=== PATIENT | female | born 1935 | race Caucasian/White ===

== ENCOUNTER 2017-08-06 18:06 | Inpatient (IN) | payer OTHER, BC ==
--- NOTE | 2017-08-06 18:41 | EDPHY ---
H & P Stated Complaint: PT WITH INTERMITTENT "LITTLE BUZZ "L BREAST/CHEST Time Seen by Provider: 08/06/17 18:28 HPI/ROS: CHIEF COMPLAINT: Left-sided chest tremor HISTORY OF PRESENT ILLNESS: The patient is an 82 y/o female with history of hypertension complaining of a "tremor" in the left side of her chest since 14:00, 5 hours ago. The tremor in her chest began while watching TV today, which caused her to be stressed. She noticed that her blood pressure was increasing. She continued to feel a margarito , tremor, and irregular heartbeat. She denies any chest discomfort or shortness of breath. Denies history of PVC, arrhythmias, CAD, diabetes, hypo/ hyperkalemia. Denies recent travel, personal or familial history of DVT's or PE' s. No fever, chills, chest pain, shortness of breath, vomiting, diarrhea, urinary complaints, headache, lightheadedness, extremity swelling. REVIEW OF SYSTEMS: Aside from elements discussed in the HPI, a comprehensive 10-point review of systems was reviewed and is negative. 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 Monitor reveals ventricular bigeminy, frequent PVCs, interspersed with periods of sinus rhythm. GENERAL: Well-developed, well-nourished, resting comfortably in no respiratory distress. HEENT: Atraumatic. Eyes: No icterus, no injection. Mouth: moist mucous membranes. No erythema or lesions. Neck: supple with no adenopathy. LUNGS: Clear to auscultation bilaterally, no wheezes, rhonchi or rales. CARDIAC: Tachycardic with irregular rhythm, no rubs or murmurs. ABDOMEN: Soft, nontender, nondistended, bowel sounds normal. BACK: No CVA tenderness. EXTREMITIES: No trauma. No edema. Range of motion is normal throughout. NEURO: Alert and oriented, grossly nonfocal. SKIN: Warm and dry, no rash. PSYCHIATRIC: Normal mentation, no agitation. Portions of this note were transcribed by a biomedical equipment specialist. I personally performed a history, physical exam, medical decision making, and confirmed accuracy of information the transcribed note. - Personal History Current Tetanus/Diphtheria Vaccine: Unsure - Medical/Surgical History Hx Asthma: No Hx Chronic Respiratory Disease: No Hx Diabetes: No Hx Cardiac Disease: No Hx Renal Disease: No Hx Cirrhosis: No Hx Alcoholism: No Hx HIV/AIDS: No Other PMH: OA, HTN, high cholesterol - Social History Smoking Status: Never smoked Constitutional: Initial Vital Signs Temperature (C) 36.8 C 08/06/17 18:12 Heart Rate 91 08/06/17 18:12 Respiratory Rate 18 08/06/17 18:12 Blood Pressure 198/103 H 08/06/17 18:12 O2 Sat (%) 95 08/06/17 18:12 O2 Delivery Mode Nasal Cannula O2 (L/minute) 2 Allergies/Adverse Reactions: lisinopril Allergy (Unknown, Verified 08/06/17 18:11) amlodipine Allergy (Verified 08/06/17 18:11) triamterene Allergy (Verified 08/06/17 18:11) Home Medications: Medication Instructions Recorded Aspirin [Aspirin 325 mg (*)] 325 mg PO DAILY PRN 12/01/12 Simvastatin [Zocor 40 mg] 40 mg PO DAILY 12/01/12 Escitalopram Oxalate [Lexapro 10 10 mg PO DAILY 11/14/14 MG] Losartan Potassium [Cozaar 50 mg 50 mg PO 2000 11/14/14 (*)] Medical Decision Making - Diagnostics EKG Interpretation: 12-LEAD EKG: Please see the full report in [facility]. My interpretation: Sinus tachycardia with paired PVC's ED Course/Re-evaluation: The patient is an 82 y/o female presenting with an irregular tachycardic heart rate and high blood pressure. EKG ordered and interpreted. 82-year-old female with history of hypertension presenting with ventricular bigeminy, frequent PVCs, interspersed with periods of sinus rhythm. Patient has no known cardiac disease. Laboratory evaluation is largely unremarkable, troponin is 0.027. 1944: Reassessed patient and discussed imaging findings. Recommend admission to the hospital for further evaluation of her arrhythmia. Patient is comfortable with plan for admission. 2037: Consulted with Dr. Meza, hospitalist, she accepts admission of this patient. Differential Diagnosis: Differential diagnoses for the patient's presenting complaint was considered including but not limited to sinus tachycardia, PACs, PVCs, SVT, atrial fibrillation, atrial flutter, anxiety, panic attack, coronary artery disease, conduction abnormality, electrolyte abnormality. Consult/Admit Bed Type: Dr Meza, [facility] - Data Points Laboratory Results: Laboratory Results 08/06/17 18:45 08/06/17 18:45 08/06/17 08/06/17 08/06/17 18:46 18:45 18:45 WBC 8.60 10^3/uL 10^3/uL (3.80-9.50) RBC 4.73 10^6/uL 10^6/uL (4.18-5.33) Hgb 14.0 g/dL g/dL (12.6-16.3) Hct 42.2 % % (38.0-47.0) MCV 89.2 fL fL (81.5-99.8) MCH 29.6 pg pg (27.9-34.1) MCHC 33.2 g/dL g/dL (32.4-36.7) RDW 13.2 % % (11.5-15.2) Plt Count 145 10^3/uL L 10^3/uL (150-400) MPV 11.1 fL fL (8.7-11.7) Neut % (Auto) 62.1 % % (39.3-74.2) Lymph % (Auto) 27.7 % % (15.0-45.0) Sequoyah % (Auto) 7.0 % % (4.5-13.0) Eos % (Auto) 2.4 % % (0.6-7.6) Baso % (Auto) 0.6 % % (0.3-1.7) Nucleat RBC Rel Count 0.0 % % (0.0-0.2) Absolute Neuts (auto) 5.34 10^3/uL 10^3/uL (1.70-6.50) Absolute Lymphs (auto) 2.38 10^3/uL 10^3/uL (1.00-3.00) Absolute Monos (auto) 0.60 10^3/uL 10^3/uL (0.30-0.80) Absolute Eos (auto) 0.21 10^3/uL 10^3/uL (0.03-0.40) Absolute Basos (auto) 0.05 10^3/uL 10^3/uL (0.02-0.10) Absolute Nucleated RBC 0.00 10^3/uL 10^3/uL (0-0.01) Immature Gran % 0.2 % % (0.0-1.1) Immature Gran # 0.02 10^3/uL 10^3/uL (0.00-0.10) D-Dimer 0.48 ug/mLFEU ug/mLFEU (0.00-0.50) Sodium 138 mEq/L mEq/L (134-144) Potassium 4.0 mEq/L mEq/L (3.5-5.2) Chloride 103 mEq/L mEq/L (97-110) Carbon Dioxide 21 mEq/l L mEq/l (22-31) Anion Gap 14 mEq/L mEq/L (8-16) BUN 23 mg/dL mg/dL (7-23) Creatinine 1.0 mg/dL mg/dL (0.6-1.0) Estimated GFR 53 Glucose 103 mg/dL H mg/dL (70-100) Calcium 9.0 mg/dL mg/dL (8.5-10.4) Troponin I 0.028 ng/mL ng/mL (0.000-0.034) Medications Given: Discontinued Medications Losartan Potassium (Cozaar) 50 mg PO EDNOW ONE Stop: 08/06/17 19:16 Last Admin: 08/06/17 19:28 Dose: 50 mg Departure - Departure Disposition: [facility] Inpatient Acute Clinical Impression: PVC (premature ventricular contraction) Condition: Fair Report Scribed for: Iraida Cortés Report Scribed by: Cristela Garcia Date of Report: 08/06/17 Time of Report: 18:41
--- NOTE | 2017-08-06 18:42 | CPEKG ---
Heart Rate: 103 RR Interval: 583 P-R Interval: 176 QRSD Interval: 100 QT Interval: 384 QTC Interval: 503 P Theresa: 55 QRS Theresa: -36 T Wave Theresa: 109 EKG Severity - ABNORMAL ECG - EKG Impression: SINUS TACHYCARDIA EKG Impression: PAIRED VENTRICULAR PREMATURE COMPLEXES EKG Impression: PROBABLE LEFT ATRIAL ABNORMALITY EKG Impression: LEFT AXIS DEVIATION EKG Impression: LVH WITH SECONDARY REPOLARIZATION ABNORMALITY Electronically Signed By: Iraida Cortés 06-Aug-2017 21:48:17
[2017-08-06 19:12] LABS: PLATELET COUNT 145 10^3/uL (150-400)
[2017-08-06] MEDS ORDERED: LOSARTAN POTASSIUM 50 MG TAB PO ONE (19:15)
[2017-08-06] MEDS ORDERED: ONDANSETRON 4 MG/2 ML VIAL IVP PRN (22:23)
[2017-08-06] MEDS ORDERED: ACETAMINOPHEN 325 MG TAB PO PRN (22:23)
[2017-08-06] MEDS ORDERED: ONDANSETRON DISINTEGRATING 4 MG TAB PO PRN (22:23)
[2017-08-06] MEDS ORDERED: ASPIRIN 325 MG TAB PO PRN (22:31)
--- NOTE | 2017-08-06 23:53 | GHP ---
[f rep st] HISTORY AND PHYSICAL DATE OF ADMISSION: 08/06/2017 CHIEF COMPLAINT: Palpitations and chest discomfort. HISTORY OF PRESENT ILLNESS: This is an 82-year-old female with a history of hypertension and hyperli pidemia, as well as anxiety, who presents after developing an unusual sensation she describes as a fl uttering over her left chest, which she described as bothersome and slightly uncomfortable. Patient reports having a stressful evening, feeling worried about her 4 children when she turned on the news and saw news of a traumatic event. She became very nervous and then became aware of this sensation a cross the left side of her chest. Patient reports that it intermittently came and went, was associat ed with some shortness of breath and an uncomfortable sensation across the left side of her chest. Pieter mott decided to present to the emergency department [place]. In the emergency department, she is continuing to have that unusual sensation acros s her chest with some associated shortness of breath. She denied any nausea or vomiting associated w ith it. 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 Denies any abdominal discomfort, any changes in her bowel habits, any diarrhea or constipation. Denies dysuria, hematuria, or lower extremity edema . Denies any headache, any vision changes, any dysphagia, subjective fevers, or chills. PAST MEDICAL HISTORY: 1. Anxiety. 2. Hypertension. 3. Hyperlipidemia. SOCIAL HISTORY: Negative for tobacco, alcohol, or illicit drugs. FAMILY HISTORY: Negative for anxiety. Patient believes she has a sister who had heart disease. REVIEW OF SYSTEMS: A 10-point review of systems is negative with the exception of that reported in t he HPI. PHYSICAL EXAMINATION: VITAL SIGNS: Blood pressure 174/92, heart rate 106, respiratory rate 16, 90% on room air, 36.4. GENERAL: This is a pleasant elderly female lying flat in bed. HEENT: Notable f or dry mucous membranes. Eye exam is negative for any icterus. CARDIAC: Patient is tachycardic and irregular. Quiet systolic murmur is appreciated at the left upper sternal border. PULMONARY: Has good respiratory effort, is clear to auscultation bilaterally. GASTROINTESTINAL: Positive bowel raffi nds. The abdomen soft and nontender in all 4 quadrants. MUSCULOSKELETAL: Negative for any lower ex tremity edema. SKIN: Negative for any rashes. NEUROLOGIC: Patient is alert and oriented x3. PSYC HIATRIC: She is anxious but cooperative on interview and examination. DATA: White count 8.6, hematocrit 42.2, platelets of 145. Creatinine 1.0, potassium 4.0. Calcium 9 .0. Troponin 0.028. EKG, which I personally reviewed and interpreted, shows sinus rhythm with bigem iny. ASSESSMENT AND PLAN: This is an 82-year-old female with hypertension and hyperlipidemia presenting w ith palpitations and chest discomfort. 1. Chest discomfort. Suspect a sensation she is describing, which is uncomfortable, is related to t he dysrhythmia we are seeing on telemetry. She is certainly at risk for ischemic cardiac disease wit h her hypertension and hyperlipidemia comorbidities. Will cycle the patient's troponins. If she rul es out, will order Lexiscan in the morning. Cardiology has been consulted and will see the patient f or her electrical abnormalities. 2. Bigeminy. Patient has consistently been popping in and out of bigeminy, certainly concerning for possible conduction abnormality secondary to ischemia. Again, will perform Lexiscan in the morning if the patient rules out, and Cardiology will be consulting. Will not initiate any new medications. Continue her home medications. As intermittently, her heart rates are appropriately controlled, I d o not want to induce bradycardia. We should get an estimate of the patient's ejection fraction with a Lexiscan. Will hold on additional echocardiography until Cardiology sees her in the morning. 3. Prophylaxis with Lovenox. DIET: Cardiac. DISPOSITION: I expect in less than 2 midnights if the patient rules out and mortgage loan funder feel she is appropriate for outpatient cardiac followup. I have discussed the case with the emergency room phys lissa. Patient will be triaged to the PCU for cardiac monitoring and care. /[id number]/MODL
[2017-08-07] MEDS: ATORVASTATIN CALCIUM 20 MG TAB PO SCH ×3 (08:41→21:00)
[2017-08-07] MEDS: ESCITALOPRAM OXALATE 10 MG TAB PO SCH (08:41)
[2017-08-07] MEDS ORDERED: ENOXAPARIN 40 MG/0.4 ML SYR SC SCH (09:00)
[2017-08-07] MEDS ORDERED: REGADENOSON 0.4 MG/5 ML SYR IVP ONE (10:05)
--- NOTE | 2017-08-07 11:14 | CPR ---
[f rep st] NONINVASIVE CARDIAC PROCEDURE REPORT DATE OF PROCEDURE: 08/07/2017 ORDERING PHYSICIAN: Tyesha Meza MD. REASON FOR TEST: Chest pain. Resting EKG shows a sinus rhythm with PVCs, rate 93. At baseline, she is asymptomatic. STRESS PORTION: Lexiscan was injected rapidly followed by saline flush. Cardiolite was then injecte d followed by saline flush per protocol. Peak blood pressure 150/80, peak heart rate 118, oxygen sat uration 97%. She continued to have PVCs at times bigeminy, PVCs and a rare couplet was noted. She d id flush, have shortness of breath and her legs felt tired. RECOVERY: She did spontaneously recover. Recovery blood pressure 140/88, heart rate 116, oxygen sat uration 94%. Her symptoms did subside with caffeine. She continues to have occasional PVCs in recov emily. At this time, she currently is stable for nuclear imaging. /[id number]/MODL
--- NOTE | 2017-08-07 11:34 | GCON ---
[f rep st] CONSULTATION CARDIOVASCULAR CONSULTATION REASON FOR CONSULTATION: This woman is admitted to the hospital with a little bit of chest discomfort. HISTORY OF PRESENT ILLNESS: She has a very interesting history where she was very worried up at home. She lives up in [facility] several miles up all by herself, and she does not like being alone and she felt stressed. She was worried about her daughters and she was worried about the news on television of bad things happening in the world. She then felt fluttering in her breast and came down to the hospital to be evaluated and was admitted to the hospital. She has no chest pain or chest tightness. She has no fever, chills, or cough. No syncope, near syncope. No hot, swollen joints. No major rashes. No photophobia, stiff neck, sore throat. No dysphagia or hoarseness. No trauma to the head, neck, or chest. She has been taking her medications and she has been doing quite well. She has hypertension, hyperlipidemia, and obesity. CARDIAC RISK FACTORS: Negative for family history of coronary disease, hyperuricemia, smoking history, known coronary artery disease, and for diabetes. FAMILY HISTORY: She has no family history of premature coronary disease. No history of unexplained sudden at a young age. SOCIAL HISTORY: She was born [place] country. She has been in [place] for 50 years and lives 3 miles up [facility] by herself. She does not like living alone and gets worried when she is up there. She has 4 children who are all healthy, and 1 daughter is here from [place], and it sounds like she is the one who is closest. The patient herself does not smoke. She does not drink significant amounts of alcohol, and she is quite active. She is very cooperative and benjie to talk to. MEDICATIONS: Listed in the record. REVIEW OF SYSTEMS: Positive for hyperlipidemia and hypertension. She is obese. ggggggggggggggggggggggggggggggggggggggA 12-point review of systems otherwise negative except for some minor arthritis and other complaints that are noted in the record. PHYSICAL EXAMINATION: VITAL SIGNS: Her blood pressure is 161/105; it had been 178/94. Her heart rate has been 95, 58, 84. Respiratory rate is 14 and irregular, and unlabored. Her oxygen saturation is in the 90s. HEENT: Pupils are equal and reactive. Mucous membranes and mouth moist. NECK: Supple. CARDIOVASCULAR: S1, S2. Systolic murmur left sternal border. No diastolic murmur. No S3, S4. No rubs. PULMONARY: Rhonchi bilaterally. No rales, wheezing, or dullness. ABDOMEN: Soft, nontender, without masses. She is obese. EXTREMITIES: No edema, inflammation, or ulceration. NEUROLOGIC: Cranial nerves 2-12 grossly normal. Motor and sensory intact. No focal neurologic deficits. SKIN: Age-related changes. PSYCHIATRIC: No anxiety or depression at this time. LABORATORY EVALUATION: White count 8.6, hematocrit 42, platelets 145. Sodium 140, potassium 4.0, chloride 106, CO2 24, BUN 18, creatinine 0.8. She came in with a troponin of 0.02 and went to 0.04. Glucose 103 and went to 85. She has nonspecific ST-T changes on her EKG. She has had some premature atrial contractions. Her EKG also shows left axis deviation, interventricular conduction delay, poor R-wave progression, sinus tachycardia. ASSESSMENT AND PLAN: 1. Anxiety. 2. Fluttering in the chest. 3. Hypertension. 4. Hyperlipidemia. 5. Obesity. The patient certainly could have some ischemia from the anxiety she was suffering yesterday. We will do a stress test at this point in time, but she does not want an angiogram. She would rather do a stress test unless there are significant problems. She does not want to do further evaluation of this because she feels so well. She has had these symptoms before when she is scared. I think it would be helpful for her to be on a beta-teresa and might help with some of her other complaints as well. Her blood pressure is quite high and not well controlled and so I will add metoprolol succinate 50 daily. Then tomorrow or later, we can get her on hydrochlorothiazide, also, if she continues to have elevation of blood pressure not being well controlled. She has dyslipidemia and we have reviewed the management for that. She is obese and needs to work on losing weight. She also is getting too stressed out and we talked about what she might be able to do about that. She gets very upset when she sees the news and her daughter is talking to her about spending less time watching that, and when she gets stressed out and she is anxious, that is when she starts to feel worse and gets scared that she is living alone up in [facility]. So if she is not watching the news, perhaps she will feel better. Her blood pressure has certainly been high and not the way we want it to be treated. I have answered all their questions. We will do the stress test today. We will add the beta-teresa and we will see how the blood pressure responds. /[id number]/MODL MTDD
[2017-08-07] MEDS: METOPROLOL SUCCINATE XR 50 MG TAB PO SCH (12:20)
--- NOTE | 2017-08-07 14:49 | HOSPPROG ---
Hospitalist Progress Note Assessment/Plan: 82-year-old with history of hypertension and dyslipidemia is admitted with a fluttering in her chest. Nuclear stress test showed abnormal ejection fraction as well as possible ischemia. # congestive heart failure, unknown if acute or chronic. * Will need further evaluation for ischemic cardiomyopathy * Check echocardiogram * Consider changing Toprol to Coreg or metoprolol. * Discussed plan of care with family and patient * Patient will need additional midnight stay for further evaluation and treatment of acute systolic congestive heart failure # hypertension: Improved with Toprol. Given new findings of cardiomyopathy will discuss with Cardiology ongoing medical management. # dyslipidemia # PVCs currently on beta teresa. Continue telemetry Subjective: Patient new to me and chart reviewed. Patient feeling better. Telemetry does show frequent PVCs occasional bigeminy. Objective: Vital Signs Temp Pulse Resp BP Pulse Ox 36.6 C 101 H 18 136/90 H 91 L 08/07/17 12:00 08/07/17 12:00 08/07/17 12:00 08/07/17 14:22 08/07/17 12:00 Laboratory Results 08/07/17 04:56 08/06/17 08/07/17 08/08/17 05:59 05:59 05:59 Intake Total 200 Balance 200 - Physical Exam Constitutional: no apparent distress, obese Eyes: PERRL, EOMI Ears, Nose, Mouth, Throat: moist mucous membranes Cardiovascular: regular rate and rhythym, systolic murmur Respiratory: no respiratory distress, clear to auscultation, reduced air movement Gastrointestinal: normoactive bowel sounds Genitourinary: no bladder fullness Skin: warm, normal color Neurologic: AAOx3 Psychiatric: interacting appropriately, not anxious, not encephalopathic ICD10 Worksheet Patient Problems: Problems Problem Status Onset Benign essential hypertension Active Osteoarthritis of hip Acute PVC (premature ventricular contraction) Acute
--- NOTE | 2017-08-07 16:11 | ECHO ---
[email or web address] [address] [address] Main: [phone] Fax: Transthoracic Echocardiogram Name: BLADIMIR SALAZAR MR#: [id number] Study Date: 08/07/2017 Study Time: 02:43 PM Date of : 1935 Age: 82 year(s) Height: 167.6 cm (66 in.) Weight: 77.11 kg (170 lb.) BSA: 1.87 m2 Gender: Female Examination: Indication: Abnormal nuclear scan Image Quality: Contrast: Requested by: Rosemary Serna BP: 136 mmHg/90 mmHg Heart Rate: Rhythm: Normal sinus rhythm Indication: Abnormal nuclear scan Procedure Staff Habilitative Interventionist: Neri Banks Reading Physician: Luis Horton Requesting Provider: Conclusions: Normal size left ventricle. Mild concentric LV hypertrophy. Moderately to severely reduced systolic function. There is basilar anteroseptal and inferior, inferoseptal and anteroseptal hypokinesis. The ejection fraction is estimated to be 25-30 %. Diastolic dysfunction is present. . Mild mitral valve regurgitation is present. Mild aortic cusp calcification is noted. No pericardial effusion. Measurements: Chambers Valvular Assessment AV/MV Valvular Assessment TV/PV Normal Normal Normal Name Value Range Name Value Range Name Value Range Ao Princess (MM): 3.3 cm (2.2 cm-3.7 AV Vmax: 0.91 m/s (1 m/s-1.7 TR Vmax: 2.55 mm/s ( - ) cm) m/s) TR PGmax: 26 mmHg ( - ) IVSd (2D): 1.0 cm (0.6 cm-1.1 AV maxP mmHg ( - ) syst. PAP: 31 mmHg ( - ) cm) LVOT Vmax: 0.60 m/s (0.7 m/s-1.1 PV Vmax: 0.91 m/s (0.6 m/s-0.9 LVDd (2D): 5.0 cm (3.9 cm-5.3 m/s) m/s) cm) MV E Vmax: 0.70 m/s ( - ) PV PGmax: 3 mmHg ( - ) LVDs (2D): 4.2 cm (2.1 cm-4 MV A Vmax: 1.26 m/s ( - ) cm) MV E/A: 0.56 ( - ) LVPWd (2D): 1.1 cm ( - ) LVEF (BP): 27 % (>=55 %) EF Range: 25-30 % Continued Measurements: Chambers Valvular Assessment AV/MV Valvular Assessment TV/PV Patient: BLADIMIR SALAZAR Study Date: 08/07/2017 Page 1 of 2 02:43 PM Name Value Name Value Name Value LADs Lon.4 cm MV E' Septal: 0.04 m/s CVP (est.): 5 mmHg LA Area: 15.5 cm2 MV E/E' Septal: 18.40 MV E/E' Lateral: 5.10 Findings: Left Ventricle: Normal size left ventricle. Mild concentric LV hypertrophy. Moderately to severely reduced systolic function. There is basilar anteroseptal and inferior, inferoseptal and anteroseptal hypokinesis. The ejection fraction is estimated to be 25-30 %. Diastolic dysfunction is present. . Right Ventricle: Normal size right ventricle. Left Atrium: The left atrium is normal in size. Right Atrium: The right atrium is normal in size. Mitral Valve: Mild mitral valve leaflet calcification is present. Mild mitral valve regurgitation is present. Aortic Valve: The aortic valve is tri-leaflet. Mild aortic cusp calcification is noted. Tricuspid Valve: Mild tricuspid regurgitation is present. Pulmonic Valve: The pulmonic valve is normal in appearance and function. Mild pulmonic valve regurgitation is noted. Aorta: The aorta is normal. Pericardium: No pericardial effusion. (No Signature Object) Patient: BLADIMIR SALAZAR Study Date: 08/07/2017 Page 2 of 2 02:43 PM [id number]
--- NOTE | 2017-08-07 16:11 | ECHO ---
[email or web address] [address] [address] Main: [phone] Fax: Transthoracic Echocardiogram Name: BLADIMIR SALAZAR MR#: [id number] Study Date: 08/07/2017 Study Time: 02:43 PM Date of : 1935 Age: 82 year(s) Height: 167.6 cm (66 in.) Weight: 77.11 kg (170 lb.) BSA: 1.87 m2 Gender: Female Examination: Indication: Abnormal nuclear scan Image Quality: Contrast: Requested by: Rosemary Serna BP: 136 mmHg/90 mmHg Heart Rate: Rhythm: Normal sinus rhythm Indication: Abnormal nuclear scan Procedure Staff Paper Mill Superintendent: Neri Banks Reading Physician: Luis Horton Requesting Provider: Conclusions: Normal size left ventricle. Mild concentric LV hypertrophy. Moderately to severely reduced systolic function. There is basilar anteroseptal and inferior, inferoseptal and anteroseptal hypokinesis. The ejection fraction is estimated to be 25-30 %. Diastolic dysfunction is present. . Mild mitral valve regurgitation is present. Mild aortic cusp calcification is noted. No pericardial effusion. Measurements: Chambers Valvular Assessment AV/MV Valvular Assessment TV/PV Normal Normal Normal Name Value Range Name Value Range Name Value Range Ao Princess (MM): 3.3 cm (2.2 cm-3.7 AV Vmax: 0.91 m/s (1 m/s-1.7 TR Vmax: 2.55 mm/s ( - ) cm) m/s) TR PGmax: 26 mmHg ( - ) IVSd (2D): 1.0 cm (0.6 cm-1.1 AV maxP mmHg ( - ) syst. PAP: 31 mmHg ( - ) cm) LVOT Vmax: 0.60 m/s (0.7 m/s-1.1 PV Vmax: 0.91 m/s (0.6 m/s-0.9 LVDd (2D): 5.0 cm (3.9 cm-5.3 m/s) m/s) cm) MV E Vmax: 0.70 m/s ( - ) PV PGmax: 3 mmHg ( - ) LVDs (2D): 4.2 cm (2.1 cm-4 MV A Vmax: 1.26 m/s ( - ) cm) MV E/A: 0.56 ( - ) LVPWd (2D): 1.1 cm ( - ) LVEF (BP): 27 % (>=55 %) EF Range: 25-30 % Continued Measurements: Chambers Valvular Assessment AV/MV Valvular Assessment TV/PV Patient: BLADIMIR SALAZAR Study Date: 08/07/2017 Page 1 of 2 02:43 PM Name Value Name Value Name Value LADs Lon.4 cm MV E' Septal: 0.04 m/s CVP (est.): 5 mmHg LA Area: 15.5 cm2 MV E/E' Septal: 18.40 MV E/E' Lateral: 5.10 Findings: Left Ventricle: Normal size left ventricle. Mild concentric LV hypertrophy. Moderately to severely reduced systolic function. There is basilar anteroseptal and inferior, inferoseptal and anteroseptal hypokinesis. The ejection fraction is estimated to be 25-30 %. Diastolic dysfunction is present. . Right Ventricle: Normal size right ventricle. Left Atrium: The left atrium is normal in size. Right Atrium: The right atrium is normal in size. Mitral Valve: Mild mitral valve leaflet calcification is present. Mild mitral valve regurgitation is present. Aortic Valve: The aortic valve is tri-leaflet. Mild aortic cusp calcification is noted. Tricuspid Valve: Mild tricuspid regurgitation is present. Pulmonic Valve: The pulmonic valve is normal in appearance and function. Mild pulmonic valve regurgitation is noted. Aorta: The aorta is normal. Pericardium: No pericardial effusion. (No Signature Object) Patient: BLADIMIR SALAZAR Study Date: 08/07/2017 Page 2 of 2 02:43 PM [id number]
--- NOTE | 2017-08-07 16:11 | ECHO ---
[email or web address] [address] [address] Main: [phone] Fax: Transthoracic Echocardiogram Name: BLADIMIR SALAZAR MR#: [id number] Study Date: 08/07/2017 Study Time: 02:43 PM Date of : 1935 Age: 82 year(s) Height: 167.6 cm (66 in.) Weight: 77.11 kg (170 lb.) BSA: 1.87 m2 Gender: Female Examination: Indication: Abnormal nuclear scan Image Quality: Contrast: Requested by: Rosemary Serna BP: 136 mmHg/90 mmHg Heart Rate: Rhythm: Normal sinus rhythm Indication: Abnormal nuclear scan Procedure Staff Flexo Operator: Neri Banks Reading Physician: Luis Horton Requesting Provider: Conclusions: Normal size left ventricle. Mild concentric LV hypertrophy. Moderately to severely reduced systolic function. There is basilar anteroseptal and inferior, inferoseptal and anteroseptal hypokinesis. The ejection fraction is estimated to be 25-30 %. Diastolic dysfunction is present. . Mild mitral valve regurgitation is present. Mild aortic cusp calcification is noted. No pericardial effusion. Measurements: Chambers Valvular Assessment AV/MV Valvular Assessment TV/PV Normal Normal Normal Name Value Range Name Value Range Name Value Range Ao Princess (MM): 3.3 cm (2.2 cm-3.7 AV Vmax: 0.91 m/s (1 m/s-1.7 TR Vmax: 2.55 mm/s ( - ) cm) m/s) TR PGmax: 26 mmHg ( - ) IVSd (2D): 1.0 cm (0.6 cm-1.1 AV maxP mmHg ( - ) syst. PAP: 31 mmHg ( - ) cm) LVOT Vmax: 0.60 m/s (0.7 m/s-1.1 PV Vmax: 0.91 m/s (0.6 m/s-0.9 LVDd (2D): 5.0 cm (3.9 cm-5.3 m/s) m/s) cm) MV E Vmax: 0.70 m/s ( - ) PV PGmax: 3 mmHg ( - ) LVDs (2D): 4.2 cm (2.1 cm-4 MV A Vmax: 1.26 m/s ( - ) cm) MV E/A: 0.56 ( - ) LVPWd (2D): 1.1 cm ( - ) LVEF (BP): 27 % (>=55 %) EF Range: 25-30 % Continued Measurements: Chambers Valvular Assessment AV/MV Valvular Assessment TV/PV Patient: BLADIMIR SALAZAR Study Date: 08/07/2017 Page 1 of 2 02:43 PM Name Value Name Value Name Value LADs Lon.4 cm MV E' Septal: 0.04 m/s CVP (est.): 5 mmHg LA Area: 15.5 cm2 MV E/E' Septal: 18.40 MV E/E' Lateral: 5.10 Findings: Left Ventricle: Normal size left ventricle. Mild concentric LV hypertrophy. Moderately to severely reduced systolic function. There is basilar anteroseptal and inferior, inferoseptal and anteroseptal hypokinesis. The ejection fraction is estimated to be 25-30 %. Diastolic dysfunction is present. . Right Ventricle: Normal size right ventricle. Left Atrium: The left atrium is normal in size. Right Atrium: The right atrium is normal in size. Mitral Valve: Mild mitral valve leaflet calcification is present. Mild mitral valve regurgitation is present. Aortic Valve: The aortic valve is tri-leaflet. Mild aortic cusp calcification is noted. Tricuspid Valve: Mild tricuspid regurgitation is present. Pulmonic Valve: The pulmonic valve is normal in appearance and function. Mild pulmonic valve regurgitation is noted. Aorta: The aorta is normal. Pericardium: No pericardial effusion. (No Signature Object) Patient: BLADIMIR SALAZAR Study Date: 08/07/2017 Page 2 of 2 02:43 PM [id number]
[2017-08-07] MEDS ORDERED: NITROGLYCERIN 0.4 MG BTL SL PRN ×2 (16:50→16:59)
[2017-08-07] MEDS ORDERED: ACETAMINOPHEN 325 MG TAB PO PRN ×2 (16:50→16:59)
[2017-08-07] MEDS ORDERED: TEMAZEPAM 15 MG CAP PO PRN ×2 (16:50→16:59)
--- NOTE | 2017-08-07 16:58 | PDMN ---
Medical Necessity Medical necessity: Patient meets INPT criteria per physician note and [facility] [place] Cardiology GR[facility] (patient presents w/ c/o chest discomfort/palpitations, Hx of HTN, obesity, and hyperlipidemia. EKG shows RSR w/bigeminy vs PAC's w/IVCD. Abnormal stress test; echo shows 25 - 30% EF w/moderate to severe systolic CHF. LOS will be > 2 midnights for further evaluation of ischemic cardiomyopathy, poss cardiac cath, starting beta teresa.)
--- NOTE | 2017-08-07 16:58 | PDMN ---
Medical Necessity Medical necessity: Patient meets INPT criteria per physician note and [facility] [place] (patient presents w/ c/o chest discomfort/palpitations, Hx of HTN, obesity, and hyperlipidemia. EKG shows RSR w/bigeminy vs PAC's w/IVCD. Abnormal stress test; echo shows 25 - 30% EF w/moderate to severe systolic CHF. LOS will be > 2 midnights for further evaluation of ischemic cardiomyopathy, poss cardiac cath, starting beta teresa.)
--- NOTE | 2017-08-07 16:58 | PDMN ---
Medical Necessity Medical necessity: Patient meets INPT criteria per physician note and [facility] Card[facility] (patient presents w/ c/o chest discomfort/palpitations, Hx of HTN, obesity, and hyperlipidemia. EKG shows RSR w/bigeminy vs PAC's w/IVCD. Abnormal stress test; echo shows 25 - 30% EF w/moderate to severe systolic CHF. LOS will be > 2 midnights for further evaluation of ischemic cardiomyopathy, poss cardiac cath, starting beta teresa.)
[2017-08-07] MEDS ORDERED: FAMOTIDINE 20 MG TAB PO ONE (16:59)
[2017-08-07] MEDS ORDERED: diphenhydrAMINE 25 MG CAP PO ONE (16:59)
[2017-08-07] MEDS ORDERED: ASPIRIN EC 325 MG TAB PO ONE (16:59)
[2017-08-07] MEDS ORDERED: DIAZEPAM 5 MG TAB PO ONE (16:59)
[2017-08-07] MEDS ORDERED: NS 1,000 ML IV SCH ×2 (17:00)
--- NOTE | 2017-08-07 17:17 | ASMTCMCOM ---
CM Note CM Note Notes: Pt admitted w/palpitations, HTN, R/O ACS. She had abnormal stress test today, will have heart cath tomorrow. She currently lives alone in [facility]. She has daughter in [place]; it sounds like it would be option to stay w/her daughter initially after dc from hospital. CM w/f for dc needs. Date Signed: 08/07/2017 05:16 PM Electronically Signed By:Mehreen Feldman RN
--- NOTE | 2017-08-07 17:17 | ASMTCMCOM ---
CM Note CM Note Notes: Pt admitted w/palpitations, HTN, R/O ACS. She had abnormal stress test today, will have heart cath tomorrow. She currently lives alone in [facility]. She has daughter in [place]; it sounds like it would be option to stay w/her daughter initially after dc from hospital. CM w/f for dc needs. Date Signed: 08/07/2017 05:16 PM Electronically Signed By:Mehreen Feldman RN
--- NOTE | 2017-08-07 17:17 | ASMTCMCOM ---
CM Note CM Note Notes: Pt admitted w/palpitations, HTN, R/O ACS. She had abnormal stress test today, will have heart cath tomorrow. She currently lives alone in [facility]. She has daughter in [place]; it sounds like it would be option to stay w/her daughter initially after dc from hospital. CM w/f for dc needs. Date Signed: 08/07/2017 05:16 PM Electronically Signed By:Mehreen Feldman RN
[2017-08-07 18:54] LABS: PLATELET COUNT 146 10^3/uL (150-400)
[2017-08-07 19:02] LABS: INR 1.07 (0.83-1.16); PROTIME(PATIENT) 13.8 SEC (12.0-15.0)
[2017-08-07] MEDS: LOSARTAN POTASSIUM 50 MG TAB PO SCH (20:49)
--- NOTE | 2017-08-08 07:32 | CPEKG ---
Heart Rate: 62 RR Interval: 968 P-R Interval: 168 QRSD Interval: 102 QT Interval: 488 QTC Interval: 496 P Gervais: 33 QRS Gervais: -38 T Wave Gervais: 166 EKG Severity - ABNORMAL ECG - EKG Impression: SINUS RHYTHM EKG Impression: PAIRED VENTRICULAR PREMATURE COMPLEXES EKG Impression: LEFT AXIS DEVIATION EKG Impression: LVH WITH SECONDARY REPOLARIZATION ABNORMALITY EKG Impression: BORDERLINE PROLONGED QT INTERVAL Electronically Signed By: Luis Horton 08-Aug-2017 10:39:28
[2017-08-08] MEDS: METOPROLOL SUCCINATE XR 50 MG TAB PO SCH (08:54)
[2017-08-08] MEDS: ESCITALOPRAM OXALATE 10 MG TAB PO SCH (08:54)
[2017-08-08] MEDS ORDERED: FAMOTIDINE 20 MG TAB PO ONE (11:00)
[2017-08-08] MEDS ORDERED: diphenhydrAMINE 25 MG CAP PO ONE (11:00)
[2017-08-08] MEDS ORDERED: ASPIRIN EC 325 MG TAB PO ONE (11:00)
[2017-08-08] MEDS ORDERED: DIAZEPAM 5 MG TAB PO ONE (11:00)
[2017-08-08] MEDS ORDERED: fentaNYL 100 MCG/2 ML INJ ONE (14:12)
[2017-08-08] MEDS ORDERED: LIDOCAINE 1% 300 MG/30 ML SDV ONE (14:12)
[2017-08-08] MEDS ORDERED: MIDAZOLAM 2 MG/2 ML VIAL ONE (14:12)
[2017-08-08] MEDS ORDERED: IOPAMIDOL (ISOVUE-370) 150 ML BTL IV ONE (14:13)
--- NOTE | 2017-08-08 15:12 | PDPROPOC ---
Sedation Plan of Care Sedation Plan of Care: vital signs stable, mental status noted, patient educated of risks, benefits, alternatives, patient can tolerate sedation ASA Classification: ASA 2 Planned drugs: fentanyl, midazolam Mallampati Score: Class 2 Mallampati Reference Image: Patient passed 3-3-2 rule?: Yes
--- NOTE | 2017-08-08 15:12 | PDHPUP ---
History & Physical Update H&P update statement: This history and physical update is based on an assessment of the patient which was completed after admission or registration (within 24 hours), but prior to the surgery/procedure. H&P update: H&P reviewed & patient examined, no change in patient's condition since H&P completed
--- NOTE | 2017-08-08 16:18 | HOSPPROG ---
Hospitalist Progress Note Assessment/Plan: 82-year-old with history of hypertension and dyslipidemia is admitted with a fluttering in her chest. Nuclear stress test showed abnormal ejection fraction as well as possible ischemia. Echo showed decreased EF and WMA inferiorly. Angiogram showed mild disease in LAD but no cause for CM # acute systolic congestive heart failure, NICM * Negative ischemic work up with angiogram * unremarkable valves on echo * no significant arrhythmias noted * no obvious metabolic issues, will check TSH. * continue meds, ARB, metoprolol and asa, lipitor * further evaluation per cardiology. # hypertension: Improved with Toprol. Given new findings of cardiomyopathy will discuss with Cardiology ongoing medical management. # dyslipidemia # PVCs currently on beta teresa. Continue telemetry Subjective: Patient nervous about angiogram and fact her heart function is down. She upset that she could have heart issues, Doesn't want to know possibilities, only if confirmed diagnosis. Objective: Vital Signs Temp Pulse Resp BP Pulse Ox 36.8 C 61 18 143/90 H 92 08/08/17 11:23 08/08/17 11:23 08/08/17 11:23 08/08/17 11:23 08/08/17 11:23 Laboratory Results 08/08/17 04:22 08/08/17 04:22 08/07/17 08/08/17 08/09/17 05:59 05:59 05:59 Intake Total 1210 Balance 1210 PT 13.8 SEC (12.0-15.0) 08/07/17 18:46 INR 1.07 (0.83-1.16) 08/07/17 18:46 - Physical Exam Constitutional: no apparent distress Eyes: PERRL Ears, Nose, Mouth, Throat: moist mucous membranes Cardiovascular: regular rate and rhythym, no murmur, rub, or gallop Respiratory: no respiratory distress, no rales or rhonchi, clear to auscultation Gastrointestinal: normoactive bowel sounds Genitourinary: No cheatham in urethra Skin: normal color Musculoskeletal: normal joint ROM, no joint effusions Neurologic: AAOx3 Psychiatric: interacting appropriately, not encephalopathic, anxious ICD10 Worksheet Patient Problems: Problems Problem Status Onset Benign essential hypertension Active Osteoarthritis of hip Acute PVC (premature ventricular contraction) Acute
[2017-08-08] MEDS ORDERED: ATROPINE SULFATE 1 MG/10 ML SYR IVP PRN (17:40)
[2017-08-08] MEDS: ATORVASTATIN CALCIUM 20 MG TAB PO SCH (20:04)
[2017-08-08] MEDS: LOSARTAN POTASSIUM 50 MG TAB PO SCH (20:04)
--- NOTE | 2017-08-08 22:51 | CPIP ---
[f rep st] INVASIVE CARDIAC PROCEDURE DATE OF PROCEDURE: 08/08/2017 PROCEDURE: Coronary angiography. INDICATION: 1. Cardiomyopathy with an ejection fraction of 30%. 2. Abnormal nuclear stress test suggestive of multiple zones of ischemia making it high risk. ACCESS: Patient was prepped and draped in sterile fashion. 1% lidocaine was used to anesthetize the right inguinal region. A 6-Macanese introducer sheath was placed selectively into the right common fe moral artery via modified Seldinger technique. CORONARY ANGIOGRAPHY: A 6-Macanese JL4 was advanced to the left main coronary artery and images obtain ed. The left main coronary artery trifurcated into LAD, ramus, and circumflex coronary arteries. Th e left main coronary artery appeared normal. The left anterior descending coronary artery gave rise to a large branching diagonal artery. The left anterior descending coronary artery had mild diffuse disease in the proximal mid segments. There was no stenosis greater than 20%. The diagonal artery a ppeared normal. The ramus coronary artery was a large vessel. Approximately 2.5-3 mm in diameter. The ramus coronary artery appeared normal. The circumflex coronary artery is a large vessel, but was nondominant. Circumflex coronary artery appeared normal. A 6-Macanese JR4 was advanced to the right coronary artery and images obtained. The right coronary artery is dominant. The right coronary nichol ry appeared normal. LEFT VENTRICULOGRAPHY: Left ventriculography was not performed as patient had 2 previous assessment of LV function. COMPLICATIONS: None. CONCLUSIONS: 1. Mild coronary artery disease without flow limitation. 2. Medical management. /[id number]/MODL
--- NOTE | 2017-08-08 22:51 | CPIP ---
[f rep st] INVASIVE CARDIAC PROCEDURE DATE OF PROCEDURE: 08/08/2017 PROCEDURE: Coronary angiography. INDICATION: 1. Cardiomyopathy with an ejection fraction of 30%. 2. Abnormal nuclear stress test suggestive of multiple zones of ischemia making it high risk. ACCESS: Patient was prepped and draped in sterile fashion. 1% lidocaine was used to anesthetize the right inguinal region. A 6-Sao [place]omean introducer sheath was placed selectively into the right common fe moral artery via modified Seldinger technique. CORONARY ANGIOGRAPHY: A 6-[place]an JL4 was advanced to the left main coronary artery and images obtain ed. The left main coronary artery trifurcated into LAD, ramus, and circumflex coronary arteries. Th e left main coronary artery appeared normal. The left anterior descending coronary artery gave rise to a large branching diagonal artery. The left anterior descending coronary artery had mild diffuse disease in the proximal mid segments. There was no stenosis greater than 20%. The diagonal artery a ppeared normal. The ramus coronary artery was a large vessel. Approximately 2.5-3 mm in diameter. The ramus coronary artery appeared normal. The circumflex coronary artery is a large vessel, but was nondominant. Circumflex coronary artery appeared normal. A 6-[place] JR4 was advanced to the right coronary artery and images obtained. The right coronary artery is dominant. The right coronary nichol ry appeared normal. LEFT VENTRICULOGRAPHY: Left ventriculography was not performed as patient had 2 previous assessment of LV function. COMPLICATIONS: None. CONCLUSIONS: 1. Mild coronary artery disease without flow limitation. 2. Medical management. /[id number]/MODL
--- NOTE | 2017-08-08 22:51 | CPIP ---
[f rep st] INVASIVE CARDIAC PROCEDURE DATE OF PROCEDURE: 08/08/2017 PROCEDURE: Coronary angiography. INDICATION: 1. Cardiomyopathy with an ejection fraction of 30%. 2. Abnormal nuclear stress test suggestive of multiple zones of ischemia making it high risk. ACCESS: Patient was prepped and draped in sterile fashion. 1% lidocaine was used to anesthetize the right inguinal region. A 6-Egyptian introducer sheath was placed selectively into the right common fe moral artery via modified Seldinger technique. CORONARY ANGIOGRAPHY: A 6-Egyptian JL4 was advanced to the left main coronary artery and images obtain ed. The left main coronary artery trifurcated into LAD, ramus, and circumflex coronary arteries. Th e left main coronary artery appeared normal. The left anterior descending coronary artery gave rise to a large branching diagonal artery. The left anterior descending coronary artery had mild diffuse disease in the proximal mid segments. There was no stenosis greater than 20%. The diagonal artery a ppeared normal. The ramus coronary artery was a large vessel. Approximately 2.5-3 mm in diameter. The ramus coronary artery appeared normal. The circumflex coronary artery is a large vessel, but was nondominant. Circumflex coronary artery appeared normal. A 6-Egyptian JR4 was advanced to the right coronary artery and images obtained. The right coronary artery is dominant. The right coronary nichol ry appeared normal. LEFT VENTRICULOGRAPHY: Left ventriculography was not performed as patient had 2 previous assessment of LV function. COMPLICATIONS: None. CONCLUSIONS: 1. Mild coronary artery disease without flow limitation. 2. Medical management. /[id number]/MODL
[2017-08-09] MEDS: ESCITALOPRAM OXALATE 10 MG TAB PO SCH (07:56)
[2017-08-09] MEDS: METOPROLOL SUCCINATE XR 50 MG TAB PO SCH (07:56)
[2017-08-09 12:04] VITALS: BP 130/78; PULSE 65; RESP 16; TEMP 97.5; O2SAT 92
--- NOTE | 2017-08-09 14:36 | ASMTCMCOM ---
CM Note CM Note Notes: 08/09/2017 Case Management Note Met w/pt and Daughter to discuss MD recommendation for Home Care support. Pt requested [facility] home care after discussion of options. Notified [facility], who accepted pt. Pt requested info life alert. Provided flyer for life alert. Pt concerned about coverage in [facility] where she lives, pt plans to contact count includes the [facility] department for guidance Case Management d/c poc: Home with [facility] support when medically stable. Date Signed: 08/09/2017 02:35 PM Electronically Signed By:Rose Rashid RN
--- NOTE | 2017-08-09 14:36 | ASMTCMCOM ---
CM Note CM Note Notes: 08/09/2017 Case Management Note Met w/pt and Daughter to discuss MD recommendation for Home Care support. Pt requested [facility] home care after discussion of options. Notified [facility], who accepted pt. Pt requested info life alert. Provided flyer for life alert. Pt concerned about coverage in [facility] where she lives, pt plans to contact [facility] department for guidance Case Management d/c poc: Home with [facility] support when medically stable. Date Signed: 08/09/2017 02:35 PM Electronically Signed By:Rose Rashid RN
--- NOTE | 2017-08-09 14:36 | ASMTCMCOM ---
CM Note CM Note Notes: 08/09/2017 Case Management Note Met w/pt and Daughter to discuss MD recommendation for Home Care support. Pt requested [facility] home care after discussion of options. Notified [facility], who accepted pt. Pt requested info life alert. Provided flyer for life alert. Pt concerned about coverage in [facility] where she lives, pt plans to contact [facility] department for guidance Case Management d/c poc: Home with [facility] support when medically stable. Date Signed: 08/09/2017 02:35 PM Electronically Signed By:Rose Rashid RN
--- NOTE | 2017-08-09 14:59 | PDIAF ---
- Diagnosis Diagnosis: chest pain Code Status: Full Code - Medication Management Discharge Medications: Medications to Continue on Transfer Simvastatin [Zocor 40 mg] 40 mg PO DAILY 12/01/12 [Last Taken 08/06/17] Escitalopram Oxalate [Lexapro 10 MG] 10 mg PO DAILY 11/14/14 [Last Taken ] Losartan Potassium [Cozaar 50 mg (*)] 50 mg PO 2000 11/14/14 [Last Taken ] Aspirin 81 mg PO DAILY #30 tablet 08/09/17 [Last Taken Unknown] Metoprolol Succinate Xr [Toprol Xl 50 mg (*)] 50 mg PO DAILY #30 tab 08/09/17 [ Last Taken Unknown] Discharge Medications: Refer to the Discharge Home Medication list for PRN reason. - Orders Services needed: Home Care, Certified 21 Dealer, Master Sugar Refiner, Physical Therapy, Occupational Therapy Home Care Face to Face: I certify that this patient was under my care and that I had the required [id number] encounter meeting the encounter requirements on the discharge day. My findings support the fact that the patient is homebound as defined in Home Care Face to Face Continued: CMS Chapter 7 Medicare Benefits Manual 30.1.1 , The condition of the patient is such that there exists a normal inability to leave home and consequently, leaving home would require a considerable and taxing effort. Isolation Type: None Diet Recommendation: cardiac -low fat low salt Diet Texture: Regular Texture Diet - Follow Up Care Current Providers and Referrals: Hernandez Ceballos MD [Primary Care Provider] - As per Instructions
--- NOTE | 2017-08-09 14:59 | PDIAF ---
- Diagnosis Diagnosis: chest pain Code Status: Full Code - Medication Management Discharge Medications: Medications to Continue on Transfer Simvastatin [Zocor 40 mg] 40 mg PO DAILY 12/01/12 [Last Taken 08/06/17] Escitalopram Oxalate [Lexapro 10 MG] 10 mg PO DAILY 11/14/14 [Last Taken ] Losartan Potassium [Cozaar 50 mg (*)] 50 mg PO 2000 11/14/14 [Last Taken ] Aspirin 81 mg PO DAILY #30 tablet 08/09/17 [Last Taken Unknown] Metoprolol Succinate Xr [Toprol Xl 50 mg (*)] 50 mg PO DAILY #30 tab 08/09/17 [ Last Taken Unknown] Discharge Medications: Refer to the Discharge Home Medication list for PRN reason. - Orders Services needed: Home Care, Certified Pattern Storage Clerk, Master Bad Work Gatherer, Physical Therapy, Occupational Therapy Home Care Face to Face: I certify that this patient was under my care and that I had the required [id number] encounter meeting the encounter requirements on the discharge day. My findings support the fact that the patient is homebound as defined in Home Care Face to Face Continued: CMS Chapter 7 Medicare Benefits Manual 30.1.1 , The condition of the patient is such that there exists a normal inability to leave home and consequently, leaving home would require a considerable and taxing effort. Isolation Type: None Diet Recommendation: cardiac -low fat low salt Diet Texture: Regular Texture Diet - Follow Up Care Current Providers and Referrals: Hernandez Ceballos MD [Primary Care Provider] - As per Instructions
--- NOTE | 2017-08-09 15:02 | PDDCSUM ---
Discharge Summary Discharge Summary: HPI/Hospital Course: 82-year-old with history of hypertension and dyslipidemia is admitted with a fluttering in her chest. Nuclear stress test showed abnormal ejection fraction as well as possible ischemia. Echo showed decreased EF and WMA inferiorly. Angiogram showed mild disease in LAD but no cause for CM Cleared for discharge per Cards per below. DDX # acute systolic congestive heart failure, NICM * Negative ischemic work up with angiogram * unremarkable valves on echo * no significant arrhythmias noted * no obvious metabolic issues, will check TSH. * continue meds, ARB, metoprolol and asa, lipitor * will f/u with CARDs # hypertension: Improved with Toprol. # dyslipidemia # PVCs currently on beta teresa. Continue telemetry EXAM NAD AAOX3 RRR CTAB S/NT/ND NO EDEMA SKIN WARM MEDS: SEE MED REC F/U: WITH CARDS 1-3 WEEKS, WITH PCP NEXT WEEK PLAN DW CARDS TOTAL TIME SPENT ON DISCHARGE IS 35 MINUTES
--- NOTE | 2017-08-09 16:47 | SOAPPROG ---
[place] Progress Note Assessment/Plan: 1. Cardiomyopahty - Pt has a NICM with an EF of 30%. There is no evidence of significant obstructive disease by cardiac catheterization on 08/08/17. No evidence of significant valvular disease by echocardiogram. No significant arrhythmias on telemetry monitoring. TSH and iron studies with in normal limits. ? viral, stress, or cryptogenic cardiomyopathy. --> Will increase losartan to 50 mg bid --> Continue metoprolol --> Repeat echocardiogram 1 to 2 months. --> OK to discharge --> Follow up whit miller in 2 weeks. 2. CHF - Pt reports class I to II symptoms at this time. Continue medical management as noted above. 3. HTN - Pts BP remains mildly elevated. Will increase losartan as noted above. 08/09/17 16:45 Subjective: No chest pain No orthopnea or PND ambulating with out difficulty Objective: Vital Signs Temp Pulse Resp BP Pulse Ox 36.4 C 65 16 130/78 H 92 08/09/17 12:00 08/09/17 12:00 08/09/17 12:00 08/09/17 12:00 08/09/17 12:00 Laboratory Results 08/08/17 04:22 08/08/17 04:22 08/08/17 08/09/17 08/10/17 05:59 05:59 05:59 Intake Total 1210 650 Output Total 350 Balance 1210 300 PT 13.8 SEC (12.0-15.0) 08/07/17 18:46 INR 1.07 (0.83-1.16) 08/07/17 18:46 Physical Exam - Physical Exam General Appearance: alert, no apparent distress Respiratory: lungs clear Cardiac/Chest: regular rate, rhythm, systolic murmur Abdomen: non-tender, soft Skin: normal color Extremities: other (No hematoma or echymosis) Neuro/Psych: alert, oriented x 3 ICD10 Worksheet Patient Problems: Problems Problem Status Onset Benign essential hypertension Active Osteoarthritis of hip Acute PVC (premature ventricular contraction) Acute
[2017-08-09] MEDS ORDERED: LOSARTAN POTASSIUM 50 MG TAB PO SCH (21:00)
--- NOTE | 2017-08-10 15:58 | ASDISCHSUM ---
Discharge Information Plan Status:Home with Home Health Medically Cleared to Leave:08/08/2017 Discharge Date:08/09/2017 04:32 PM D/C Disposition:Home Health Service [facility] D/C Disposition:HHSNOTBCH Projected Discharge Date:08/09/2017 11:00 AM Transportation at D/C:Family Discharge Delay Reason: Follow-Up Date:08/09/2017 11:00 AM Discharge Slot: Final Diagnosis: Placement Information Referral Type:*Home Health Care Services Referral ID:[id number] Provider Name:[facility] Care Address 1:[address] [address] Address 2: City:[place] Selection Factors: State:[place] Patient Contact Information Contact Name:JOSEPH Relationship:Daughter Address: Work Phone: [facility]:[place] Alternate Phone: [facility]/Zip Code:[place] Email: Financial Information Financial Class: Primary Plan Desc:MEDICARE INPATIENT Primary Plan Number:[id number] Secondary Plan Desc:[facility] Secondary Plan Number:[id number] Assessment Information [facility] CM Progress Note CM Note CM Note Notes: Pt admitted w/palpitations, HTN, R/O ACS. She had abnormal stress test today, will have heart cath tomorrow. She currently lives alone in [facility]. She has daughter in [place]; it sounds like it would be option to stay w/her daughter initially after dc from hospital. CM w/f for dc needs. Date Signed: 08/07/2017 05:16 PM Electronically Signed By:Mehreen Feldman RN [facility] CM Progress Note CM Note CM Note Notes: 08/09/2017 Case Management Note Met w/pt and Daughter to discuss MD recommendation for Home Care support. Pt requested [facility] after discussion of options. Notified [facility], who accepted pt. Pt requested info life alert. Provided flyer for life alert. Pt concerned about [facility], pt plans to contact [facility] for guidance Case Management d/c poc: Home with [facility] support when medically stable. Date Signed: 08/09/2017 02:35 PM Electronically Signed By:Rose Rashid RN Intervention Information
--- NOTE | 2017-08-10 15:58 | ASDISCHSUM ---
Discharge Information Plan Status:Home with Home Health Medically Cleared to Leave:08/08/2017 Discharge Date:08/09/2017 04:32 PM D/C Disposition:Home Health Service [facility] D/C Disposition:HHSNOTBCH Projected Discharge Date:08/09/2017 11:00 AM Transportation at D/C:Family Discharge Delay Reason: Follow-Up Date:08/09/2017 11:00 AM Discharge Slot: Final Diagnosis: Placement Information Referral Type:*Home Health Care Services Referral ID:[id number] Provider Name:[facility] Care Address 1:[address] [address] Address 2: City:[place] Selection Factors: State:[place] Patient Contact Information Contact Name:JOSEPH Relationship:Daughter Address: Work Phone: [facility]:[place] Alternate Phone: [facility]/Zip Code:[place] Email: Financial Information Financial Class: Primary Plan Desc:MEDICARE INPATIENT Primary Plan Number:[id number] Secondary Plan Desc:[facility] Secondary Plan Number:[id number] Assessment Information [facility] CM Progress Note CM Note CM Note Notes: Pt admitted w/palpitations, HTN, R/O ACS. She had abnormal stress test today, will have heart cath tomorrow. She currently lives alone in [facility]. She has daughter in [place]; it sounds like it would be option to stay w/her daughter initially after dc from hospital. CM w/f for dc needs. Date Signed: 08/07/2017 05:16 PM Electronically Signed By:Mehreen Feldman RN [facility] CM Progress Note CM Note CM Note Notes: 08/09/2017 Case Management Note Met w/pt and Daughter to discuss MD recommendation for Home Care support. Pt requested [facility] after discussion of options. Notified [facility], who accepted pt. Pt requested info life alert. Provided flyer for life alert. Pt concerned about coverage in [facility] where she lives, pt plans to contact [facility] for guidance Case Management d/c poc: Home with [facility] support when medically stable. Date Signed: 08/09/2017 02:35 PM Electronically Signed By:Rose Rashid RN Intervention Information
--- NOTE | 2017-08-10 15:58 | ASDISCHSUM ---
Discharge Information Plan Status:Home with Home Health Medically Cleared to Leave:08/08/2017 Discharge Date:08/09/2017 04:32 PM D/C Disposition:Home Health Service [facility] D/C Disposition:HHSNOTBCH Projected Discharge Date:08/09/2017 11:00 AM Transportation at D/C:Family Discharge Delay Reason: Follow-Up Date:08/09/2017 11:00 AM Discharge Slot: Final Diagnosis: Placement Information Referral Type:*Home Health Care Services Referral ID:[id number] Provider Name:[facility] Care Address 1:[address] [address] Address 2: City:[place] Selection Factors: State:[place] Patient Contact Information Contact Name:JOSEHP Relationship:Daughter Address: Work Phone: [facility]:[place] Alternate Phone: [facility]/Zip Code:[place] Email: Financial Information Financial Class: Primary Plan Desc:MEDICARE INPATIENT Primary Plan Number:[id number] Secondary Plan Desc:[facility] Secondary Plan Number:[id number] Assessment Information [facility] CM Progress Note CM Note CM Note Notes: Pt admitted w/palpitations, HTN, R/O ACS. She had abnormal stress test today, will have heart cath tomorrow. She currently lives alone in [facility]. She has daughter in [place]; it sounds like it would be option to stay w/her daughter initially after dc from hospital. CM w/f for dc needs. Date Signed: 08/07/2017 05:16 PM Electronically Signed By:Mehreen Feldman RN [facility] CM Progress Note CM Note CM Note Notes: 08/09/2017 Case Management Note Met w/pt and Daughter to discuss MD recommendation for Home Care support. Pt requested [facility] after discussion of options. Notified [facility], who accepted pt. Pt requested info life alert. Provided flyer for life alert. Pt concerned about coverage in [facility] where she lives, pt plans to contact [facility] for guidance Case Management d/c poc: Home with [facility] support when medically stable. Date Signed: 08/09/2017 02:35 PM Electronically Signed By:Rose Rashid RN Intervention Information
== END 2017-08-09 16:32 | disposition home health service (06) | DRG 287 ==
LOC: F2W 21:56 → OBSVTOIN 08-07 15:49
PROVIDERS: ADMIT Hospitalist; ATTEND Internal Medicine
DX: I11.0 Hypertensive heart disease with heart failure (principal); I50.21 Acute systolic (congestive) heart failure; I49.3 Ventricular premature depolarization; I25.10 Atherosclerotic heart disease of native coronary artery without angina pectoris; E78.00 Pure hypercholesterolemia, unspecified; F41.9 Anxiety disorder, unspecified; E66.9 Obesity, unspecified; Z68.27 Body mass index [BMI] 27.0-27.9, adult; M16.10 Unilateral primary osteoarthritis, unspecified hip
CPT/HCPCS: A9500; G0378; J1644; J1650; J2250; J2785; J3010; Q9967

== ENCOUNTER 2018-08-09 08:57 | Emergency (ER) | payer BC, OTHER ==
[2018-08-09] MEDS ORDERED: SILVER NITRATE APPLICATOR 1 APPL TP ONE (09:21)
[2018-08-09] MEDS ORDERED: LET GEL TOPICAL 1 EA SYR TP ONE (09:21)
[2018-08-09] MEDS ORDERED: OXYMETAZOLINE 30 ML NASAL SPRAY EACHNARE ONE (09:21)
--- NOTE | 2018-08-09 09:25 | EDPHY ---
H & P Stated Complaint: epistaxis Time Seen by Provider: 08/09/18 09:16 HPI/ROS: CHIEF COMPLAINT: Right-sided nosebleed since this morning HISTORY OF PRESENT ILLNESS: 83-year-old female via private vehicle, driven by a friend, awoke this morning feeling well, blew her nose was resulting in epistaxis which has now resolved with direct pressure. No trauma or fall. No headache. No chest pain. No dizziness. No syncope or near syncope. Patient did take her antihypertensive and other r medications this morning. PRIMARY CARE PROVIDER: Dr. Unruly Ceballos REVIEW OF SYSTEMS: 10 systems reviewed and negative with the exception of the elements mentioned in the history of present illness PAST MEDICAL & SURGICAL HISTORY: No anticoagulant use. Anxiety. Hypertension. SOCIAL HISTORY: Lives by herself in [facility] PHYSICAL EXAM (Prior to examination, patient consented to physical exam, hands were washed and my usual and customary physical exam procedures followed) 1) GENERAL: Well-developed, well-nourished, alert and oriented. Appears anxious 2) HEAD: Normocephalic, atraumatic 3) HEENT: Pupils equal, round, reactive to light bilaterally. Sclera anicteric. Nasopharynx: Nasal clip in place. Nasal clip taken down revealing an area of friability right Kiesselbach's plexus. No active bleeding. No hematoma. No left-sided bleeding. 4) NECK: Full range of motion, no meningeal signs. 5) LUNGS: Clear auscultation bilaterally, no wheezes, no rhonchi, no retractions. 6) HEART: Regular rate and rhythm, no murmur, no heave, no gallop. 7) ABDOMEN: No guarding, no rebound, no focal tenderness, negative McBurney's, negative Al's, negative Rovsing's, negative peritoneal sign, 8) MUSCULOSKELETAL: Moving all extremities, no focal areas of tenderness, no obvious trauma. No peripheral edema or discoloration. 9) BACK: No CVA tenderness, no midline vertebral tenderness, no fluctuance, no step-off, no obvious trauma, no visual or palpable abnormality. 10) SKIN: No rash, no petechiae. 11) Psychiatric: Patient is oriented X 3, there is no agitation. DIFFERENTIAL DIAGNOSIS: In no particular order including but not limited to anterior epistaxis, posterior epistaxis, hypertensive crisis - Personal History Current Tetanus/Diphtheria Vaccine: Unsure Current Tetanus Diphtheria and Acellular Pertussis (TDAP): Unsure - Medical/Surgical History Hx Asthma: No Hx Chronic Respiratory Disease: No Hx Diabetes: No Hx Cardiac Disease: No Hx Renal Disease: No Hx Cirrhosis: No Hx Alcoholism: No Hx HIV/AIDS: No Hx Splenectomy or Spleen Trauma: No Other PMH: OA, HTN, high cholesterol - Social History Smoking Status: Never smoked Constitutional: Initial Vital Signs Temperature (C) 36.5 C 08/09/18 09:01 Heart Rate 77 08/09/18 09:01 Respiratory Rate 16 08/09/18 09:01 Blood Pressure 210/110 H 08/09/18 09:01 O2 Sat (%) 96 08/09/18 09:01 O2 Delivery Mode Room Air Allergies/Adverse Reactions: lisinopril Allergy (Unknown, Verified 08/09/18 09:00) amlodipine Allergy (Verified 08/09/18 09:00) triamterene Allergy (Verified 08/09/18 09:00) Home Medications: Medication Instructions Recorded Simvastatin [Zocor 40 mg] 40 mg PO DAILY 12/01/12 Escitalopram Oxalate [Lexapro 10 10 mg PO DAILY 11/14/14 MG] Losartan Potassium [Cozaar 50 mg 50 mg PO 199911/14/14 (*)] Aspirin 81 mg PO DAILY #30 tablet 08/09/17 Metoprolol Succinate Xr [Toprol Xl 50 mg PO DAILY #30 tab 08/09/17 50 mg (*)] Lorazepam 08/09/18 Medical Decision Making Procedures: Procedure: Epistaxis control. Indication: nosebleed not controlled by direct pressure. Risks, benefits, alternatives discussed with patient and consent obtained. The right nares was anesthetized with LAT. The anterior epistaxis was identified. The patient was treated with silver nitrate cautery. Following the procedure the patient was re-examined and the bleeding was well controlled. Patient ambulated in the ER with no recurrence of bleeding. The patient tolerated the procedure well. The procedure was performed by myself. At discharge the patient's nose is hemostatic. ED Course/Re-evaluation: 9:20 a.m.: Patient has no active bleeding however there is an area of friability right Kiesselbach's plexus. Will plan on chemical cauterization in the ER. She is noted to be hypertensive at 210/110, has history of anxiety, appears anxious. She did take her antihypertensive medications this morning. Will monitor blood pressure while in the ER. 949 a.m.: Recheck of blood pressure at 154/82 without pharmacologic intervention 10:35 a.m.: Silver nitrate cautery cauterization performed by myself. Patient has been observed for period of time in the ER ambulated on the ER has had no recurrence of bleeding. I think the patient can be discharged with my usual and customary epistaxis precautions and instructions. She feels comfortable being discharged. I saw this patient independently based on established practice protocols. Care of patient under supervision of secondary supervising physician Dr Anibal Moore with whom I discussed case. - Data Points Medications Given: Discontinued Medications Oxymetazoline HCl (Afrin Nasal [place]) 2 sprays EACHNARE EDNOW ONE Stop: 08/09/18 09:22 Last Admin: 08/09/18 09:32 Dose: 2 sprays Silver Nitrate/Potassium Nitrate (Silver Nitrate Applicator) 3 each TP EDNOW ONE Stop: 08/09/18 09:22 Last Admin: 08/09/18 09:33 Dose: 3 each Tetracaine/Epinephrine/Lidocaine (Let Gel Topical) 1 ea TP EDNOW ONE Stop: 08/09/18 09:22 Last Admin: 08/09/18 09:33 Dose: 1 ea Departure - Departure Disposition: Home, Routine, Self-Care Clinical Impression: Acute anterior epistaxis Condition: Good Instructions: Nosebleed (ED) Additional Instructions: If you develop further episodes of nosebleed, place direct pressure for 20 minutes. If the bleeding continues, seek medical attention. Do not blow your nose, do not pick your nose, avoid bearing down. Referrals: Dona Aguiar MD [Medical Doctor] - As per Instructions
[2018-08-09 09:51] VITALS: BP 154/82
== END 2018-08-09 11:10 | disposition home or self-care (01) ==
PROC: 3E09XTZ Introduction of Destructive Agent into Nose, External Approach (ICD-10-PCS; principal; 2018-08-09)
DX: R04.0 Epistaxis (principal); I10 Essential (primary) hypertension; F41.9 Anxiety disorder, unspecified; E78.5 Hyperlipidemia, unspecified